=== PATIENT | female | born 1975 | race Caucasian/White ===

== ENCOUNTER → 2018-04-10 12:49 | Outpatient (CLI) | payer BC, SELFPAY ==
[2018-03-25 13:07] VITALS: BMI 50.3
--- NOTE | 2018-04-10 12:53 | BI_ITS ---
MAMMOGRAPHY - BILATERAL SCREENING REASON FOR EXAM: Female, 42 years old. Routine annual screening examination. PERTINENT HISTORY: Mother with breast cancer. Remote left stereotactic breast biopsy. TECHNIQUE: Digital bilateral breast nathalia (3D mammographic acquisition) in the CC and MLO projections. 2-D mediolateral oblique (MLO) and craniocaudad (CC) views of both breasts were obtained. CAD: Full Field Digital Mammography with Computer Added Detection was performed. COMPARISON: Comparison is made with prior study dated February 25, 2017 and October 27, 2014. FINDINGS: Breast Composition: There are scattered areas of fibroglandular density. There are no dominant masses or suspicious calcifications. A tissue clip marker is once again seen in the nodular density in the upper lateral aspect of the left breast. Stable small bilateral axillary lymph nodes. No other significant abnormalities are identified. There has been no significant change since the prior study. BI/SCREENING MAMM (CAD), BILAT IMPRESSION: Stable bilateral screening mammogram. Yearly follow-up mammogram recommended. (A) ASSESSMENT CATEGORY: BIRADS Category 2: Benign. A letter regarding these results will be sent to the patient by the facility within 30 days. Approximately 10% of breast cancers are not detected by mammography. A normal mammogram should not delay biopsy of a clinically suspicious abnormality. [id number] Electronically Signed: Jean Claude Aranda MD at 15:03 EST Tel [phone], Service support ,
== END ==
PROVIDERS: Family Provider Student in an Organized Health Care Education/Training Program; PCP Student in an Organized Health Care Education/Training Program; Referring Provider Nurse Practitioner Women's Health; Visit Provider Nurse Practitioner Women's Health
DX: Z12.31 Encounter for screening mammogram for malignant neoplasm of breast (principal)
CPT/HCPCS: 77063; 77067

== ENCOUNTER → 2020-01-05 | Outpatient (CLI) | payer BC, SELFPAY ==
[2020-01-05 09:56] VITALS: BMI 50.3
[2020-01-11 15:13] LABS: HPV APTIMA, High Risk Negative (Negative)
== END | disposition home or self-care (01) ==
LOC: LABSPEC 13:52
PROVIDERS: PCP Student in an Organized Health Care Education/Training Program; Referring Provider Nurse Practitioner Women's Health; Visit Provider Nurse Practitioner Women's Health
DX: Z12.4 Encounter for screening for malignant neoplasm of cervix (principal)
CPT/HCPCS: 87624; 88175; G0145

== ENCOUNTER → 2020-01-21 | Outpatient (CLI) | payer BC, SELFPAY ==
[2018-03-25 13:07] VITALS: BMI 50.3
[2020-01-05 09:56] VITALS: BMI 50.3
--- NOTE | 2020-01-21 13:43 | BI_ITS ---
MAMMOGRAPHY - BILATERAL SCREENING REASON FOR EXAM: Female, 44 years old. Routine annual screening examination. PERTINENT HISTORY: Mother with breast cancer. Prior left stereotactic breast biopsy. TECHNIQUE: Digital bilateral breast mo (3D mammographic acquisition) in the CC and MLO projections. 2-D mediolateral oblique (MLO) and craniocaudad (CC) views of both breasts were obtained. CAD: Full Field Digital Mammography with Computer Added Detection was performed. COMPARISON: Comparison is made with prior examination dated 02/25/2017 and 04/10/2018. FINDINGS: Breast Composition: There are scattered areas of fibroglandular density. There are no dominant masses or suspicious calcifications. A tissue clip marker is once again seen in the nodular density in the upper lateral aspect of the left breast. Stable small bilateral axillary lymph nodes. No other significant abnormalities are identified. There has been no significant change since the prior study. BI/SCREEN MAMM (CAD) W/MO BILAT IMPRESSION: Stable bilateral screening mammogram. Yearly follow-up mammogram recommended. (A) ASSESSMENT CATEGORY: BIRADS Category 2: Benign. A letter regarding these results will be sent to the patient by the facility within 30 days. Approximately 10% of breast cancers are not detected by mammography. A normal mammogram should not delay biopsy of a clinically suspicious abnormality. [id number] Electronically Signed: Jean Claude Aranda, at 15:07 EDT , Service support ,
== END | disposition home or self-care (01) ==
LOC: OPBI 13:43
PROVIDERS: PCP Student in an Organized Health Care Education/Training Program; Referring Provider Nurse Practitioner Women's Health; Visit Provider Nurse Practitioner Women's Health
DX: Z12.31 Encounter for screening mammogram for malignant neoplasm of breast (principal)
CPT/HCPCS: 77063; 77067

== ENCOUNTER → 2021-01-22 08:51 | Outpatient (CLI) | payer BC, SELFPAY ==
[2021-01-22 10:24] LABS: Absolute Lymphocyte Count 1.02 X10^3/uL (0.83-4.51); Absolute Neutrophil Count 4.2 X10^3/uL (2.0-7.7); Basophil# 0.03 X10^3/uL; Basophil% 0.5 % (0-1); Eosinophil# 0.18 X10^3/uL; Hematocrit 39.5 % (37-47); Hemoglobin 12.7 g/dL (12.0-15.0); Lymphocyte # 1.02 X10^3/ul (0.83-4.51); Lymphocyte % 17.3 % (19-41); Mean Corp Hgb Conc 32.2 g/dL (32-36); Mean Corpuscular Hgb 27.9 pg (27.0-32.0); Mean Corpuscular Volume 86.6 fL (81-99); Mean Platelet Vol. 10.9 fl (6.2-12.0); Monocyte# 0.42 X10^3/uL; Monocyte% 7.1 % (0-10); NRBC Flagged by Analyzer 0 % (0-5); Neutrophil # 4.18 X10^3/uL (2.7-7.7); Neutrophil % 70.7 % (47-70); Platelet Count 318 K/mm3 (150-450); RBC Distribution Width SD 44.3 fl (35.1-43.9); Red Blood Count 4.56 M/mm3 (4.2-5.4); White Blood Count 5.9 K/mm3 (4.4-11.0)
[2021-01-22 10:57] LABS: Hemoglobin A1c 5.8 % (3.8-5.6)
[2021-01-22 11:21] LABS: Vitamin D,25 Hydroxy 34.2 ng/mL
[2021-01-22 11:42] LABS: ALB/GLOB Ratio 0.7 RATIO (0.9-2.4); AST(SGOT) 21 U/L (15-37); Alanine Aminotransfer ALT/SGPT 38 U/L (13-56); Albumin, Serum 2.9 g/dL (3.2-5.0); Alkaline Phosphatase 80 U/L (45-117); Anion Gap 8 (5-15); BUN 10 mg/dL (7-18); BUN/Creat Ratio 12.3 RATIO (10-20); Calcium,Total 8.4 mg/dL (8.5-10.1); Chloride 108 mmol/L (98-107); Cholesterol 158 mg/dL (200); Creatinine, Serum 0.82 mg/dL (0.55-1.02); EST Glomerular Filtration Rate 81 mL/min (>60); Est Glom Filt Rate - Afr Amer 98 mL/min (>60); Follicle Stimulating Hormone 2.7 mIU/mL; Globulin 4.4 g/dL (2.2-4.2); Glucose 114 mg/dL (74-106); High Density Lipoprotein 30 mg/dL; Potassium 3.9 mmol/L (3.5-5.1); Protein, Total 7.3 g/dL (6.4-8.2); Sodium Level 139 mmol/L (136-145); Thyroid Stim Hormone (TSH) 1.38 uIU/mL (0.358-3.74); Triglycerides 95 mg/dL; Very Low Density Lipoprotein 19 mg/dL (5-40)
== END ==
PROVIDERS: PCP Student in an Organized Health Care Education/Training Program; Referring Provider Student in an Organized Health Care Education/Training Program; Visit Provider Student in an Organized Health Care Education/Training Program
DX: U07.1 COVID-19 (principal); Z86.16 Personal history of COVID-19; Z01.419 Encounter for gynecological examination (general) (routine) without abnormal findings
CPT/HCPCS: 36415; 80053; 80061; 82306; 83001; 83036; 84443; 85025; 86769

== ENCOUNTER → 2023-06-30 | Outpatient (CLI) | payer BC, SELFPAY ==
--- NOTE | 2023-06-30 16:42 | US_ITS ---
INDICATION: RUQ PAIN EXAMINATION: Ultrasound US Abdomen Limited (quadrant) TECHNIQUE: Dee scale and color doppler imaging was performed of the right upper quadrant. COMPARISON: No relevant prior comparison study available FINDINGS: LIVER: Liver is large at 18.6 cm. There is mild diffuse increased echogenicity. No hepatic masses or ductal dilatation. No focal hepatic lesion. There is no free fluid. GALLBLADDER AND BILIARY TREE: Multiple stones and sludge are noted in the gallbladder. Gallbladder is estimated at 8.2 cm in length. Gallbladder wall estimated 3.5 mm. The proximal common bile duct measures 4.9 mm, which is within normal limits for the patient''s age. Sonographic Duron''s sign: Negative. PANCREAS: No focal abnormality is demonstrated in the pancreas. No pancreatic ductal dilatation. RIGHT kidney: RIGHT kidney has normal configuration, no solid or cystic masses or hydronephrosis. RIGHT kidney dimension: 14.0 x 4.9 x 4.4 cm. SPLEEN: Spleen is imaged as per request at the bedside. Spleen measures 13.2 x 5.6 x 5.0 cm.. No focal abnormality noted. US/Abdomen Limited IMPRESSION: 1. Cholelithiasis and moderate distention the gallbladder. No evidence however of sonographic Duron sign, pericholecystic fluid or ductal dilatation. Mild gallbladder wall thickening is however noted. 2. Hepatomegaly and mild hepatic steatosis without hepatic masses or ductal dilatation. 3. Normal appearance of the RIGHT kidney. 4. Normal appearance of the spleen. Electronically Signed: Ryan Hawley MD at 22:49 EDT ,
== END | disposition home or self-care (01) ==
LOC: US 16:41
PROVIDERS: PCP Student in an Organized Health Care Education/Training Program; Referring Provider Nurse Practitioner Family; Visit Provider Nurse Practitioner Family
DX: R10.12 Left upper quadrant pain (principal)
CPT/HCPCS: 76705

== ENCOUNTER 2023-07-25 06:16 | Day surgery (SDC) | payer BC, SELFPAY ==
[2023-07-25] MEDS: Lactated Ringers 1,000 ML 15 ML IV (06:30)
[2023-07-25 06:36] VITALS: BP 130/77; PULSE 84; RESP 16; TEMP 36.2; O2SAT 96; BMI 51.3
--- NOTE | 2023-07-25 07:07 | HP.PCM_ITS ---
History and Physical Date of Admission: 07/25/23 Allergies No Known Allergies Allergy (Verified 07/14/23 13:13) Medications NK 03/25/18 [History Confirmed 07/14/23] [facility] Surgical History H/O breast biopsy H/O section Family History Father DiabetesMother Breast cancerGrandmother Ovarian cancer Social History current occupational status: employed current occupation: [employer] Smoking Status: Never smoker alcohol intake: current alcohol intake frequency: holidays/special occasions only substance use type: does not use caffeine: Yes Type: carbonated beverages Number of servings: 2 seatbelt use: always do you feel safe at home: Yes 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 Lloyd Antoine for surgical consultation regarding gallbladder disease and a written copy my surgical consult and recommendations will return to her. As of July 07, 2023 laboratory demonstrated an amylase of 28 and a lipase of 24 with a white blood cell count of 10,000 and hemoglobin 13.5 with hematocrit of 39.9 and a platelet count of 265,000. 89% neutrophils. I had assisted the patient back on November 14, 2014 with a stereotactic needle core upper mid left breast biopsy and pathology showed focal fibrocystic change with associated microcalcifications and no evidence of malignancy at that time. At the [facility] on June 30, 2023 patient had a right upper quadrant ultrasound. Liver is felt to be large at 18.6 cm. Multiple stones and sludge are noted in the gallbladder which is 8.2 cm in length. The wall is 3.5 mm. The common bile duct is 4.9 mm. The spleen measures 13.2 x 5.6 x 5 cm without focal abnormality. It is of note the patient states that she was awakened at night with nausea and vomiting and left upper quadrant and flank pain. She thought she had darker urine. This is why the ultrasound was obtained not only of the right upper quadrant but of the spleen as well. She had laboratory obtained showing a total bilirubin of 0.9 and an alkaline phosphatase of 76 and AST of 20 and ALT of 18. She has had 2 previous C-sections via transverse incision. No current fever chills or sweats. No current abdominal pain. No bright red blood per rectum or melena. She has not had a previous colonoscopy and she knows she is due for 1. ROS General General: No weight change, appetite, fatigue, colon cancer, breast cancer or weakness HEENT HEENT: No difficulty swallowing, eye injury, eye surgery, swollen glands or hoarseness Endo Endocrine: No thyroid disease, diabetes mellitus, thyroid cancer, Hair loss, heat intolerance or cold intolerance Skin Skin: No rash or changing moles Musc Musculoskeletal: No back problems, arthritis, rheumatoid arthritis, gout or joint pain Cardio Cardiovascular: No murmur, pacemaker, heart disease, atrial fibrillation, high blood pressure, heart attack, heart stent, palpitations, shortness of breat with exertion or chest pain Psych Psychiatric: No depression, anxiety or hearing voices Resp Respiratory: No shortness of breath, No sleep apnea, No cough, No COPD, No asthma, No emphysema and No wheezing Gastro Gastrointestinal: No abdominal pain, No nausea or vomiting, No diarrhea, No constipation, No blood in stool, No acid reflux, No hemorrhoids, No ulcers, Yes gallbladder problem and No black,tarry stools Jack Hematologic: No blood thinners, No blood disorders, No bleeding, No anemia and No blood clots Neuro Neurologic: No system reviewed and no additional complaints, except as documented, No as per HPI, No abnormal gait, No abnormal hearing, No abnormal movements, No abnormal speech, No behavioral changes, No burning sensations, No confusion, No convulsions, No disequilibrium, No dizziness, No localized weakness, No frequent falls, No headache(s), No lack of coordination, No loss of vision, No memory loss, No numbness, No other visual disturbances, No radicular pain, No restless legs, No sensory deficit, No syncope, No tingling, No trem or(s), No weakness and No other Exam Const General: cooperative Nutritional Appearance: obese morbidly obese [facility] Head: normal to inspection Eyes General: appearance normal, both eyes and all related structures Neck Neck: normal visual inspection Resp Effort & Inspection: normal respiratory effort Auscultation: clear to auscultation bilaterally Cardio Rate: regular rate Rhythm: regular rhythm GI Inspection: normal to inspection Palpation: soft and no hepatosplenomegaly Other: Abdomen is large, no hepatosplenomegaly, normal bowel sounds Musc Cervical Spine: normal cervical lordosis Skin General: no rashes or lesions noted Neuro General: patient alert, patient awake and patient oriented x3 Extrem General: no calf tenderness Other: 1-2+ bilateral extremity nonpitting edema Psych Appearance: grossly normal Assessment and Plan Assessment and Plan (1) Cholelithiasis with chronic cholecystitis: Status: Chronic Qualifiers: Biliary obstruction: without biliary obstruction Cholelithiasis location: gallbladder Qualified Code(s): K80.10 - Calculus of gallbladder with chronic cholecystitis without obstruction Plan: I am suspicious that the patient's presentation is consistent with chronic cholecystitis cholelithiasis. The majority of discomfort was in the left upper quadrant however and I do propose for her a colonoscopy with possible biopsy or polypectomy as indicated. Subsequent to that propose a laparoscopic cholecystectomy but I have in detail discussed the technique, benefit, risk, alternatives. Additional ports may be required. It may have resolved down to a partial cholecystectomy. The patient is aware of her increased operative difficulty and risk. I do believe however that it is very pertinent to proceed in an elective setting versus emergency procedure. She has had an opportunity to ask and have questions answered. We will schedule and proceed at her discretion. I appreciate the opportunity of assisting with her surgical care. Copy: Dr. Lloyd March M.D., F.A.C.S I have examined the patient and the H&P has been reviewed. There are no clinical changes since date of exam. Plan to proceed with a colonoscopy with possible biopsy or polypectomy as indicated. Etiology of the patient's left upper quadrant pain indeterminate. She has had an opportunity to ask and have questions answered. We will proceed as noted. Sebastien March M.D., F.A.C.S.
[2023-07-25 07:15] LABS: Internal QC Validated? YES +Cl - CLEAR BKGD; Pregnancy, Serum, hCG Quali. NEGATIVE Negative
--- NOTE | 2023-07-25 07:30 | COLBX_PTH ---
PATIENT: ARMANI EMMANUEL LOC: EN U#:[id number] AGE/SX: 48/F ROOM: RE07/25/[address]: Dr. Sebastien March MD : 1975 BED: DIS: 07/25/2023 SPEC #: [id number] RECD: 07/25/23 11:09 STATUS: TED JEREMY #: [id number] ASHKAN: 07/25/23 07:[address]: Sebastien aMrch DEPT: SURGICAL PATHOLOGY RECD BY: Aziza Chun ENTERED: 07/25/23 12:16 SP TYPE: COLON BX OTHR DR: Dr. Lloyd Antoine DO Tissues: Transverse colon Procedures: Surgery Specimen Level IV HEADER OPERATION: Colonoscopy with polyp biopsy PRE-OP DIAGNOSIS: Cholelithiasis chronic cholecystitis TISSUE SUBMITTED: Distal transverse polyp biopsy 4mm MICROSCOPIC DIAGNOSIS Distal transverse polyp, biopsy: A fragment of colonic mucosa, no pathologic diagnosis. SJ/mr 07/28/23 MICROSCOPIC DESCRIPTION Slides are reviewed. GROSS DESCRIPTION Received in fixative is one container labeled with the patient's name and designated Distal transverse polyp biopsy 4mm. The specimen consists of one irregular fragment of light lozano soft tissue that measures 0.5 x 0.2 x 0.1 m. The specimen is totally submitted in one cassette. GENEVIEVE/ 07/25/23 TC:4 CPT:15175
[2023-07-25 08:36] VITALS: BP 130/77; BP 133/89; PULSE 82; RESP 16; TEMP 36.3; O2SAT 97
--- NOTE | 2023-07-25 08:36 | OP.CCLET_ITS ---
07/25/2023 Lloyd Antoine [address] [id number] Re : Colonoscopy procedure for Katie Layne Dear Dr. Antoine This procedure was performed on Tuesday, July 25, 2023. My impressions and recommendations are as follows: Impressions : - Hemorrhoids found on perianal exam. - One 4 mm polyp in the distal transverse colon, removed with a cold biopsy forceps. Resected and retrieved. - The examination was otherwise normal. Recommendations : - Discharge patient to home. - Resume previous diet. - Continue present medications. - Repeat colonoscopy for surveillance based on pathology results. - Telephone my office for pathology results in 1 week. These findings do not correlate with patient's complaint of abdominal pain. We will plan to pursue laparoscopic cholecystectomy with selective cholangiograms. My findings are described in the full procedure note, which is enclosed. If I can be of further assistance, please feel free to contact me at Doctor phone number(s): Work: . Sincerely, Sebastien March MD 07/25/2023 8:35:48 AM This report has been signed electronically.
--- NOTE | 2023-07-25 08:36 | OP.COLON_ITS ---
Patient Name: Katie Layne Procedure Date: 07/25/2023 8:13 AM Date of : 1975 Age: 48 Procedure: Colonoscopy Indications: Upper abdominal pain Providers: Sebastien March MD Medicines: See the Anesthesia note for documentation of the administered medications Patient Profile: Last Colonoscopy: none. The patient's first colonoscopy is today. Complications: No immediate complications. Procedure: Pre-Anesthesia Assessment: - Prior to the procedure, a History and Physical was performed, and patient medications and allergies were reviewed. The patient's tolerance of previous anesthesia was also reviewed. The risks and benefits of the procedure and the sedation options and risks were discussed with the patient. All questions were answered, and informed consent was obtained. Prior Anticoagulants: The patient has taken no anticoagulant or antiplatelet agents. ASA Grade Assessment: III - A patient with severe systemic disease. After reviewing the risks and benefits, the patient was deemed in satisfactory condition to undergo the procedure. After I obtained informed consent, the scope was passed under direct vision. Throughout the procedure, the patient's blood pressure, pulse, and oxygen saturations were monitored continuously. The adult colonoscope was introduced through the anus and advanced to the cecum, identified by appendiceal orifice and ileocecal valve. The colonoscopy was performed without difficulty. The patient tolerated the procedure well. The quality of the bowel preparation was good. The ileocecal valve and the appendiceal orifice were photographed. Scope In: 8:18:27 AM Scope Withdrawal Time 0 hours 7 minutes 10 seconds Scope Out: 8:31:05 AM Total Procedure Duration Time 0 hours 12 minutes 38 seconds Findings: Hemorrhoids were found on perianal exam. A 4 mm polyp was found in the distal transverse colon. The polyp was sessile. The polyp was removed with a cold biopsy forceps. Resection and retrieval were complete. The exam was otherwise without abnormality. Impression: - Hemorrhoids found on perianal exam. - One 4 mm polyp in the distal transverse colon, removed with a cold biopsy forceps. Resected and retrieved. - The examination was otherwise normal. Recommendation: - Discharge patient to home. - Resume previous diet. - Continue present medications. - Repeat colonoscopy for surveillance based on pathology results. - Telephone my office for pathology results in 1 week. These findings do not correlate with patient's complaint of abdominal pain. We will plan to pursue laparoscopic cholecystectomy with selective cholangiograms. Procedure Code(s): --- Professional --- 31092, Colonoscopy, flexible; with biopsy, single or multiple Diagnosis Code(s): --- Professional --- K64.9, Unspecified hemorrhoids D12.3, Benign neoplasm of transverse colon (hepatic flexure or splenic flexure) R10.10, Upper abdominal pain, unspecified CPT copyright 2021 [employer]. All rights reserved. The codes documented in this report are preliminary and upon sensor technician review may be revised to meet current compliance requirements. Sebastien March MD 07/25/2023 8:35:48 AM This report has been signed electronically. Number of Addenda: 0 Note Initiated On: 07/25/2023 8:13 AM
[2023-07-25 08:40] VITALS: BP 115/72; BP 130/77; PULSE 71; RESP 16; O2SAT 97
[2023-07-25 08:45] VITALS: BP 130/77; BP 137/93; PULSE 75; RESP 16; O2SAT 99
[2023-07-25 08:50] VITALS: BP 130/77; BP 141/95; PULSE 79; RESP 16; TEMP 36.7; O2SAT 99
[2023-07-25 09:03] VITALS: BP 130/77
== END 2023-07-25 09:05 | disposition home or self-care (01) ==
LOC: EN 06:16 → AC 06:17
PROVIDERS: Anesthesiology; PCP Student in an Organized Health Care Education/Training Program; Referring Provider Surgery; Visit Provider Surgery
PROC: 0DJD8ZZ Inspection of Lower Intestinal Tract, Via Natural or Artificial Opening Endoscopic (ICD-10-PCS; CPT 45378; principal; 2023-07-25 07:25)
DX: K63.5 Polyp of colon (principal); K80.10 Calculus of gallbladder with chronic cholecystitis without obstruction; K64.4 Residual hemorrhoidal skin tags
CPT/HCPCS: 45380; 84703; 88305; J2405

== ENCOUNTER 2023-09-03 08:46 | Day surgery (SDC) | payer BC, SELFPAY ==
[2023-09-03] VITALS (8 sets, daily range): BP systolic 120–153; BP diastolic 64–82; PULSE 57–71; RESP 16–20; TEMP 36.2–36.4; O2SAT 92–97; BMI 52.8
--- NOTE | 2023-09-03 09:13 | EKG12_ITS ---
Test Reason : PRE-OP Blood Pressure : / mmHG Vent. Rate : 073 BPM Atrial Rate : 073 BPM P-R Int : 192 ms QRS Dur : 088 ms QT Int : 414 ms P-R-T Axes : 044 021 031 degrees QTc Int : 456 ms Normal sinus rhythm Normal ECG No previous ECGs available Confirmed by Esequiel Dickey ([id number]), editor school photograph DENISE MEJIA ([id number]) on 09/10/2023 9:01:40 AM Referred By: Sebastien March Confirmed By:Esequiel Dickey
[2023-09-03 09:23] LABS: Internal QC Validated? YES +Cl - CLEAR BKGD; Pregnancy, Urine Negative Negative
[2023-09-03] MEDS: Lactated Ringers 1,000 ML 15 ML IV (09:35)
--- NOTE | 2023-09-03 10:12 | PCM.HP.BLA ---
History and Physical Date of Admission: 09/03/23 No Known Allergies Allergy (Verified 07/14/23 13:13) Medications NK 03/25/18 [History Confirmed 07/14/23] PFSH Surgical History H/O breast biopsy H/O section Family History Father DiabetesMother Breast cancerGrandmother Ovarian cancer Social History current occupational status: employed current occupation: [employer] Smoking Status: Never smoker alcohol intake: current alcohol intake frequency: holidays/special occasions only substance use type: does not use caffeine: Yes Type: carbonated beverages Number of servings: 2 seatbelt use: always do you feel safe at home: Yes 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 Lloyd Antoine for surgical consultation regarding gallbladder disease and a written copy my surgical consult and recommendations will return to her. As of July 07, 2023 laboratory demonstrated an amylase of 28 and a lipase of 24 with a white blood cell count of 10,000 and hemoglobin 13.5 with hematocrit of 39.9 and a platelet count of 265,000. 89% neutrophils. I had assisted the patient back on November 14, 2014 with a stereotactic needle core upper mid left breast biopsy and pathology showed focal fibrocystic change with associated microcalcifications and no evidence of malignancy at that time. At the [facility] on June 30, 2023 patient had a right upper quadrant ultrasound. Liver is felt to be large at 18.6 cm. Multiple stones and sludge are noted in the gallbladder which is 8.2 cm in length. The wall is 3.5 mm. The common bile duct is 4.9 mm. The spleen measures 13.2 x 5.6 x 5 cm without focal abnormality. It is of note the patient states that she was awakened at night with nausea and vomiting and left upper quadrant and flank pain. She thought she had darker urine. This is why the ultrasound was obtained not only of the right upper quadrant but of the spleen as well. She had laboratory obtained showing a total bilirubin of 0.9 and an alkaline phosphatase of 76 and AST of 20 and ALT of 18. She has had 2 previous C-sections via transverse incision. No current fever chills or sweats. No current abdominal pain. No bright red blood per rectum or melena. She has not had a previous colonoscopy and she knows she is due for 1. ROS General General: No weight change, appetite, fatigue, colon cancer, breast cancer or weakness HEENT HEENT: No difficulty swallowing, eye injury, eye surgery, swollen glands or hoarseness Endo Endocrine: No thyroid disease, diabetes mellitus, thyroid cancer, Hair loss, heat intolerance or cold intolerance Skin Skin: No rash or changing moles Musc Musculoskeletal: No back problems, arthritis, rheumatoid arthritis, gout or joint pain Cardio Cardiovascular: No murmur, pacemaker, heart disease, atrial fibrillation, high blood pressure, heart attack, heart stent, palpitations, shortness of breat with exertion or chest pain Psych Psychiatric: No depression, anxiety or hearing voices Resp Respiratory: No shortness of breath, No sleep apnea, No cough, No COPD, No asthma, No emphysema and No wheezing Gastro Gastrointestinal: No abdominal pain, No nausea or vomiting, No diarrhea, No constipation, No blood in stool, No acid reflux, No hemorrhoids, No ulcers, Yes gallbladder problem and No black,tarry stools Jack Hematologic: No blood thinners, No blood disorders, No bleeding, No anemia and No blood clots Neuro Neurologic: No system reviewed and no additional complaints, except as documented, No as per HPI, No abnormal gait, No abnormal hearing, No abnormal movements, No abnormal speech, No behavioral changes, No burning sensations, No confusion, No convulsions, No disequilibrium, No dizziness, No localized weakness, No frequent falls, No headache(s), No lack of coordination, No loss of vision, No memory loss, No numbness, No other visual disturbances, No radicular pain, No restless legs, No sensory deficit, No syncope, No tingling, No tremor(s), No weakness and No other Exam Const General: cooperative Nutritional Appearance: obese morbidly obese [facility] Head: normal to inspection Eyes General: appearance normal, both eyes and all related structures Neck Neck: normal visual inspection Resp Effort & Inspection: normal respiratory effort Auscultation: clear to auscultation bilaterally Cardio Rate: regular rate Rhythm: regular rhythm GI Inspection: normal to inspection Palpation: soft and no hepatosplenomegaly Other: Abdomen is large, no hepatosplenomegaly, normal bowel sounds Musc Cervical Spine: normal cervical lordosis Skin General: no rashes or lesions noted Neuro General: patient alert, patient awake and patient oriented x3 Extrem General: no calf tenderness Other: 1-2+ bilateral extremity nonpitting edema Psych Appearance: grossly normal Assessment and Plan Assessment and Plan (1) Cholelithiasis with chronic cholecystitis: Status: Chronic Qualifiers: Biliary obstruction: without biliary obstruction Cholelithiasis location: gallbladder Qualified Code(s): K80.10 - Calculus of gallbladder with chronic cholecystitis without obstruction Plan: I am suspicious that the patient's presentation is consistent with chronic cholecystitis cholelithiasis. On July 25, 2023 I assisted the patient with a colonoscopy. This demonstrated some hemorrhoids. A 4 mm polyp in the distal transverse colon but pathology just demonstrated normal mucosa.. Subsequent to that propose a laparoscopic cholecystectomy but I have in detail discussed the technique, benefit, risk, alternatives. Additional ports may be required. It may have resolved down to a partial cholecystectomy. The patient is aware of her increased operative difficulty and risk. I do believe however that it is very pertinent to proceed in an elective setting versus emergency procedure. She has had an opportunity to ask and have questions answered. We will schedule and proceed at her discretion. I appreciate the opportunity of assisting with her surgical care. The patient has had no change in her wellbeing. We have discussed perioperative activity diet and wound care recommendations. We will proceed as noted. Copy: Dr. Lloyd March M.D., F.A.C.S
--- NOTE | 2023-09-03 10:15 | DCINST_ITS ---
Discharge Instructions Procedure General Surgery Diet Discharge Diet: Light diet - advance as tolerated (if you have questions about your diet instructions, please talk to you doctor.) Activity Discharge Activity: May Not Drive (for 3-5 days or while taking narcotic pain medicine.) May shower in (days): 1 Lifting Restrictions: 10 pounds Dressing / Incision Call your doctor if your incision/area has: Continuous Slow Oozing, Sudden Increased Bleeding, Increased Pain/ Swelling, Increased Redness and Foul Smelling Discharge Call your doctor if you observe: Fever of 101 or Higher Suture Line Care: Avoid Pulling/Pushing and Avoid Pinching/Bending Additional Dressing/Incision Instructions:: Change or remove dressing in 4 days. Leave steri-strips in place for 1 week. Follow Up Care Please Follow Up With: Sebastien March MD When: Call [phone] to make an appointment to be seen in about 10 days. Test Results: Test results from this visit will be discussed in further detail at your follow- up appointment, if applicable. Discharge Plan Admission Attending Provider: Sebastien March Primary Care Provider: Lloyd Antoine Instructions Print Language: Indonesian Discharge Orders/Prescriptions Prescriptions: No Action NK Referrals / Follow Up: Lloyd Antoine, [Primary Care Provider] - Disposition Disposition (needs filled in before D/C Order can be placed): Home, Self Care
[2023-09-03] MEDS: Cefazolin 3 GM in 0.9% Normal Saline (100mL Bag) 100 ML IV (10:55)
--- NOTE | 2023-09-03 11:00 | GALL_PTH ---
PATIENT: ARMANI EMMANUEL LOC: [facility] [place] U#:[id number] AGE/SX: 48/F ROOM: RE09/03/[address]: Dr. Sebastien March MD : 1975 BED: DIS: 09/03/2023 SPEC #: [id number] RECD: 09/03/23 13:04 STATUS: TED MCGARRYJessica #: [id number] ASHKAN: 09/03/23 11:[address]: Sebastien March DEPT: SURGICAL PATHOLOGY RECD BY: Geeta Matthew ENTERED: 09/04/23 08:05 SP TYPE: THERESA ESCALONA DR: Dr. Lloyd Antoine DO Tissues: Gallbladder, NOS Procedures: Surgery Specimen Level III HEADER OPERATION: Laparoscopic, cholecystectomy with IOC PRE-OP DIAGNOSIS: Cholelithiasis, calculus of gallbladder with cholecystitis without obstruction TISSUE SUBMITTED: Gallbladder MICROSCOPIC DIAGNOSIS Gallbladder, cholecystectomy: Chronic cholecystitis, cholelithiasis and cholesterolosis. / 09/05/2023 MICROSCOPIC DESCRIPTION Slides are reviewed. GROSS DESCRIPTION Received is one container labeled with the patient's name and designated gallbladder. The specimen consists of a gallbladder measuring 8.0 cm in length and up to 3.5 cm in diameter. The external surface is pink-lozano, smooth and glistening for the most part. Focally it is granular, hemorrhagic and contains cautery artifact. The gallbladder contains yellow mucoid bile and multiple mulberry orange stones measuring in aggregate 3.5 x 3.0 x 2.0 cm and 0.2 to 2.0 cm in greatest dimension. The mucosa is bile-stained and without any mass lesions. The gallbladder wall measures up to 0.2 cm in thickness. Also The mucosa also shows several yellowish streaks consistent with cholesterolosis. Newspaper Peddler sections from the gallbladder and the cystic duct are submitted in one cassette. / SJ: 09/04/2023 TC:3 CPT: 07768
--- NOTE | 2023-09-03 11:20 | RAD_ITS ---
INDICATION: PAIN EXAMINATION/TECHNIQUE: One cine run intraoperative views are presented for evaluation. Total Fluoroscopic Time: 21 seconds Radiation dosage index: 41.72 mGy COMPARISON: No relevant prior comparison study available FINDINGS: The examination is markedly limited due to motion. No definite constant filling defect is seen however, small filling defects cannot be excluded. There is no biliary ductal dilatation. There is free passage into the duodenum. RAD/Cholangiogram/ O R,Initial IMPRESSION: Limited examination due to motion as described above. Electronically Signed: Chepe Lee MD at 13:11 EDT ,
[2023-09-03] MEDS: Bupivacaine Mpf 0.5% 30 ML VIAL (12:31)
--- NOTE | 2023-09-03 12:32 | OP.PCM_ITS ---
Report of Operation Date of Procedure: 09/03/23 Pre-Operative Diagnosis: Chronic cholecystitis cholelithiasis Post-Operative Diagnosis: Same Surgery/Procedure Performed:: Laparoscopic cholecystectomy with cholangiograms Description of Surgical Findings:: Timeout informed consent was obtained. 48-year-old female was taken to the op room placed supine on the table underwent general endotracheal intubation and anesthesia. Ancef 2 g were given intravenously. The abdomen sterilely prepped and draped. 0.5% Marcaine was used as a local anesthetic. Throughout the procedure a total of 30 cc was used. Skin sites were Johnny size. A suprau mbilical vertical incision was created holding sutures of 0 Vicryl placed varies needle inserted saline drop test performed the abdomen was insufflated with CO2 to a pressure of 15 mmHg pressure. 10 mm trocar inserted. 10 mm laparoscope inserted. No evidence of trocar injuries. Under direct visualization 5 mm trocars were placed in the epigastric mid right subcostal area and lateral right subcostal area. Patient was noted to have an enlarged fatty liver. The gallbladder was grasped and elevation of the liver was technically very difficult. The infundibular area was then retracted and very tedious and careful blunt dissection was instituted at the infundibulum until clearly the cystic artery and cystic duct were identified. This did require extreme care and extensive blunt dissection. The cystic artery was clipped proximally and distally with Hem-o-mary kate clips prior to transecting it. Hem-o-mary kate clip was placed on the cystic duct stump through a 14-gauge Angiocath a cholangiogram catheter was inserted a small incision made in the cystic duct cholangiogram inserted and then fluoroscopically controlled cholangiograms were obtained. This demonstrated normal ductal anatomy. Cholangiogram catheter was removed and 2 Hem-o-mary kate clips were placed on the cystic duct stump prior to transecting it. Where needed additional Hem-o-mary kate clips were used for hemostasis on gallbladder peritoneum. The gallbladder was dissected free from the liver bed using electrocautery. Complete hemostasis was intact. There was no bile or stone spillage. The gallbladder was completely released. And placed within the retrieval bag. The right upper quadrant was aspirated free of fluid. Fibular was placed on the liver bed to assure hemostasis. Blood loss has been quite minimal. Hemostasis was intact. The abdomen was allowed to deflate of the CO2. The fascia at the umbilicus was slightly enlarged for removal of the gallbladder. The fascia at the umbilicus then approximated with a running 0 Vicryl suture. Skin edges approximated opted for Monocryl subdermal stitches. Steri-Strips Telfa OpSite dressings applied. Sponge and instrument and needle counts were reported to the surgeon to be correct. Specimens gallbladder. Drains none. Blood loss minimal. The patient was taken to the recovery room in satisfied condition without apparent complication Sebastien March M.D., F.A.C.S. Surgeon: Sebastien March Type of Anesthesia: Epidural/Supplement and Local MAC Anesthesiologist: Ricardo Hogan
== END 2023-09-03 14:45 | disposition home or self-care (01) ==
LOC: SDC 08:48 → AC 08:50
PROVIDERS: Anesthesiology; PCP Student in an Organized Health Care Education/Training Program; Referring Provider Surgery; Visit Provider Surgery
PROC: (CPT 47610; principal; 2023-09-03 10:40)
DX: K80.10 Calculus of gallbladder with chronic cholecystitis without obstruction (principal); E66.01 Morbid (severe) obesity due to excess calories; Z68.43 Body mass index [BMI] 50.0-59.9, adult
CPT/HCPCS: 47562; 00790; 74300; 76000; 81025; 88304; 93005; J7120; J2405